=== PATIENT | female | born 2000 | race Caucasian/White ===

== ENCOUNTER 2020-09-14 02:46 | Emergency (ER) | payer OTHER ==
[~2020-09-14] VITALS: Ht 160 cm; Wt 54.5 kg
[2020-09-14 02:59] VITALS: TEMP 98.5
[2020-09-14 03:48] LABS: ALANINE AMINOTRANSFERASE 21 U/L (4-34); ALKALINE PHOSPHATASE 41 U/L (50-136); ANION GAP 8 mmol/L (7-16); AST,SGOT 34 U/L (15-37); BILIRUBIN,TOTAL 0.3 mg/dL (0.0-1.0); BLOOD UREA NITROGEN 13 mg/dL (7-17); CALCIUM 9.4 mg/dL (8.4-10.2); CARBON DIOXIDE 25 mmol/L (22-30); CHLORIDE 109 mmol/L (98-107); CREATININE, serum 0.85 (0.52-1.25); GLUCOSE 101 mg/dL (74-106); POTASSIUM 4.1 mmol/L (3.4-5.0); SODIUM 142 mmol/L (137-145); TOTAL PROTEIN 6.8 gm/dL (6.4-8.2)
[2020-09-14 03:49] LABS: HEMATOCRIT 39.8 % (35.0-45.0); HEMOGLOBIN 12.9 g/dl (12.0-15.0); MEAN CELL VOLUME 94 fl (80.0-95.0); MEAN CORPUSCULAR HEMOGLOBIN 30 pg (26.0-32.0); MEAN CORPUSCULAR HGB CONC 32 g/dl (33.0-37.0); RED BLOOD COUNT 4.23 M/mm3 (4.10-5.30)
[2020-09-14 03:50] LABS: PLATELET COUNT 272 K/mm3 (130-400)
[2020-09-14 03:51] LABS: GRAN % 43.3 % (42.2-75.2); MEAN PLATELET VOLUME 10.8 fl (7.4-10.4)
[2020-09-14 03:52] LABS: LYMPH % 43.4 % (20.0-51.0); MONO % 10.1 % (1.7-9.3)
[2020-09-14 03:53] LABS: GRAN # 2.6 (1.4-6.5)
[2020-09-14 03:54] LABS: EOS # 0.1 (0.0-0.7); LYMPH # 2.6 (1.2-3.4); MONO # 0.6 (0.1-0.6)
[2020-09-14 04:00] LABS: TROPONIN-I < 0.012 ng/mL (0.000-0.035)
[2020-09-14 06:04] VITALS: BP 112/71; PULSE 90
== END 2020-09-14 06:27 | disposition home or self-care (01) ==
LOC: COL.ER 02:46
PROVIDERS: Emergency Medicine
DX: R07.9 Chest pain, unspecified (principal); R00.2 Palpitations; Z32.02 Encounter for pregnancy test, result negative; Z91.011 Allergy to milk products
CPT/HCPCS: J1885